=== PATIENT | female | born 1970 | race Caucasian/White ===

== ENCOUNTER 2017-09-13 10:24 | Day surgery (SDC) | payer MEDICARE, MEDICAID ==
[~2017-09-13 10:24] MED LIST: Buffered Lidocaine 0.9% SYRIN* 5 ML/SYR SYRINGE INTRADERM ONE
[2017-09-13] MEDS ORDERED: Buffered Lidocaine 0.9% SYRIN* 5 ML/SYR SYRINGE ONE (10:30)
[2017-09-13] MEDS ORDERED: Propofol* 10 MG/ML 20 ML BTL IV PUSH ONE (12:00)
[2017-09-13] MEDS ORDERED: Lidocaine 2% PF * 5 ML VIAL ONE (12:00)
[2017-09-13] MEDS ORDERED: fentaNYL* 50 MCG/ML 2 ML VIAL (100 MCG VIAL) ONE (12:00)
[2017-09-13] MEDS ORDERED: Midazolam* 1 MG/ML 2 ML VIAL (2 MG) ONE (12:00)
[2017-09-13] MEDS ORDERED: Succinylcholine* 20 MG/ML 10 ML VIAL ONE (13:10)
[2017-09-13] MEDS ORDERED: Naloxone* 0.4 MG/ML 1 ML VIAL IV PRN (13:30)
[2017-09-13 13:42] VITALS: BP 180/112
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
== END 2017-09-13 15:12 | disposition home or self-care (01) ==
LOC: OR 10:24
PROVIDERS: ATTEND Internal Medicine Gastroenterology
DX: R13.14 Dysphagia, pharyngoesophageal phase (principal); R63.4 Abnormal weight loss; R63.0 Anorexia; R10.13 Epigastric pain; K21.9 Gastro-esophageal reflux disease without esophagitis; I10 Essential (primary) hypertension; E03.9 Hypothyroidism, unspecified; G90.511 Complex regional pain syndrome I of right upper limb; F11.90 Opioid use, unspecified, uncomplicated; G40.89 Other seizures; G89.4 Chronic pain syndrome; F41.9 Anxiety disorder, unspecified; Z79.899 Other long term (current) drug therapy; Z72.0 Tobacco use
CPT/HCPCS: 81025; 87077; 88305; J0330; J2250; J2704; J3010

== ENCOUNTER 2017-12-06 08:12 | Observation (INO) | payer MEDICARE, MEDICAID ==
[~2017-12-06 08:12] MED LIST changes: +Famotidine IV* 10 MG/ML 2 ML (20 mg) IV ONE
[2017-12-06] MEDS ORDERED: ceFOXitin 2 GM IVPREMIX* 2 GM/50 ML BAG ONE (08:22)
[2017-12-06] MEDS ORDERED: Famotidine IV* 10 MG/ML 2 ML (20 mg) ONE (08:22)
[2017-12-06] MEDS ORDERED: Lidocaine 1% MPF wEPI 200,000* 30 ML SDV ONE (10:18)
[2017-12-06] MEDS ORDERED: fentaNYL* 50 MCG/ML 2 ML VIAL (100 MCG VIAL) ONE (10:21)
[2017-12-06] MEDS ORDERED: Midazolam* 1 MG/ML 5 ML VIAL (5 MG) ONE (10:26)
[2017-12-06] MEDS ORDERED: Cisatracurium* 2 MG/ML MDV 5 ML ONE (10:39)
[2017-12-06] MEDS ORDERED: Morphine VIAL* 10 MG/ML 1 ML VIAL ONE (10:50)
[2017-12-06] MEDS ORDERED: Propofol* 10 MG/ML 20 ML BTL IV PUSH ONE (10:50)
[2017-12-06] MEDS ORDERED: DiMENhydriNATE IV* 50 MG/ML VIAL ONE (10:50)
[2017-12-06] MEDS ORDERED: Succinylcholine* 20 MG/ML 10 ML VIAL ONE (10:50)
[2017-12-06] MEDS ORDERED: Dexamethasone IV* 4 MG/ML 1 ML (4 MG) ONE (10:50)
[2017-12-06] MEDS ORDERED: Ondansetron INJ* 2 MG/ML VIAL ONE (10:50)
[2017-12-06] MEDS ORDERED: Ketorolac INJ* 30 MG/ML 1 ML VIAL ONE (10:50)
[2017-12-06] MEDS ORDERED: Lidocaine 2% PF * 5 ML VIAL ONE (10:50)
[2017-12-06] MEDS ORDERED: Morphine INJ* 2 MG/ML 1 ML SYRINGE (TWO MG - NEW SYRINGE VERSION) IV PRN ×2 (11:09→20:43)
[2017-12-06] MEDS ORDERED: Naloxone* 0.4 MG/ML 1 ML VIAL IV PRN (11:09)
[2017-12-06] MEDS ORDERED: DiMENhydriNATE IV* 50 MG/ML VIAL IV PUSH PRN (11:09)
[2017-12-06] MEDS ORDERED: oxyCODONE TAB* 5 MG TAB PO PRN (11:09)
[2017-12-06] MEDS ORDERED: HYDROmorphone INJ1* 1 MG/ML SYRINGE ONE (13:27)
[2017-12-06] MEDS ORDERED: Ondansetron INJ* 2 MG/ML VIAL IV PRN (13:56)
[2017-12-06] MEDS ORDERED: Gabapentin CAP(*) 300 MG ONE (14:33)
[2017-12-06] MEDS ORDERED: ALPRAZolam TAB* 0.5 MG ONE (14:34)
[2017-12-06] MEDS ORDERED: ALPRAZolam TAB* 0.5 MG PO PRN (15:05)
[2017-12-06] MEDS ORDERED: Polyethylene Glycol 3350* 17 GM PACKET PO PRN (15:09)
[2017-12-06] MEDS ORDERED: Albuterol HFA INHALER* 8 gm MDI INH PRN (15:39)
[2017-12-06] MEDS: Morphine TAB Extended Release (*) 30 MG TAB.ER PO SCH (15:43)
[2017-12-06] MEDS ORDERED: Morphine TAB Extended Release (*) 30 MG TAB.ER PO SCH (16:00)
[2017-12-06 16:34] LABS: Hematocrit 40 % (35-47); Hemoglobin 13.6 g/dl (12.0-16.0)
[2017-12-06] MEDS: Gabapentin CAP(*) 400 MG PO SCH (16:34)
[2017-12-06] MEDS: OXYMORPHONE 5 MG PO SCH ×2 (16:58→22:13)
[2017-12-06] MEDS ORDERED: Baclofen TAB* 20 MG PO SCH (17:30)
[2017-12-06] MEDS ORDERED: Docusate CAP* 100 MG PO SCH (18:00)
[2017-12-06] MEDS ORDERED: CMC:Meloxicam(NF) 7.5 MG TAB PO SCH (18:00)
[2017-12-06] MEDS ORDERED: Lisinopril TAB* 10 MG PO SCH (18:00)
[2017-12-06] MEDS ORDERED: Cyanocobalamin TAB* 500 MCG PO SCH (18:00)
[2017-12-06] MEDS ORDERED: Baclofen TAB* 20 MG PO PRN (19:00)
[2017-12-06] MEDS: OXYCODONE 20 MG/ML PO PRN (19:24)
[2017-12-06] MEDS: cloNIDine TAB* 0.1 MG PO SCH (20:10)
[2017-12-06] MEDS ORDERED: Hydrochlorothiazide TAB* 25 MG ONE (20:59)
[2017-12-06] MEDS ORDERED: [UNRECOGNIZED DRUG - OTHER] TOPICAL SCH (21:00)
[2017-12-06] MEDS ORDERED: [UNRECOGNIZED DRUG - OTHER] TOPICAL SCH (21:00)
[2017-12-06] MEDS ORDERED: [UNRECOGNIZED DRUG - OTHER] TOPICAL SCH (21:00)
[2017-12-06] MEDS: BuPROPion XL* 150 MG TAB.XL PO SCH (21:06)
[2017-12-06] MEDS: Gabapentin CAP(*) 300 MG PO SCH ×2 (21:14→21:19)
[2017-12-07] MEDS: Morphine TAB Extended Release (*) 30 MG TAB.ER PO SCH ×2 (00:11→07:58)
[2017-12-07] MEDS: OXYMORPHONE 5 MG PO SCH ×2 (03:50→10:25)
[2017-12-07] MEDS: OXYCODONE 20 MG/ML PO PRN (03:53)
--- NOTE | 2017-12-07 05:17 | OP ---
OPERATIVE REPORT: DATE OF OPERATION: 12/06/17 DATE OF : 70 SURGEON: Carlos Frederick MD [employer] OPERATOR: Dr. Goodwin. ANESTHESIA: General endotracheal tube. PRE-OP DIAGNOSIS: Severe dysmenorrhea. POST-OP DIAGNOSIS: Severe dysmenorrhea. OPERATIVE PROCEDURE: Transvaginal hysterectomy, bilateral salpingectomy. ESTIMATED BLOOD LOSS: 100 cc. SPECIMEN: Includes uterus and fallopian tubes. FINDINGS: On exam under anesthesia, she had first degree prolapse. Both ovaries were visualized and appeared normal. Both fallopian tubes were visualized and appeared normal. Uterus was small. DESCRIPTION OF PROCEDURE: The patient identified, procedure identified as a transvaginal hysterectom y and bilateral salpingectomy. The patient was taken to the operating room, prepped and draped in th e usual fashion in the dorsal lithotomy position under general anesthesia. Two single-toothed tenacu lums were on the sides of the cervix. She was injected with the 1% lidocaine with epi at the cervico vaginal junction. This was approximately 10 cc. This was incised using the Bovie. The vaginal muco sa was dissected cephalad. The cul-de-sac was entered via sharp dissection. The uterosacral ligamen ts were clamped, cut and ligated. Good hemostasis was achieved there. The cardinal ligaments were t hen clamped, cut, and ligated using the LigaSure after the anterior vesicoperitoneal fold had been en tered. The broad ligament was incised using the LigaSure. The ovarian ligament and round ligaments were clamped, cut and ligated with 0 Polysorb simple sutures and the LigaSure. Good hemostasis was v erified in all the pedicles. The fallopian tubes were grasped with [place] Line and brought down first to the left and then the right and these were ligated using the LigaSure and excised. Good hemostasis was verified in all the pedicles once again. A modified Reynolds stitch was placed in the posterior va ginal mucosa. The vaginal cuff was then closed using 0 Polysorb in cocarc-jt-guget sutures and the M cCall stitch was tied down. Good hemostasis again verified. A Gomez was placed with clear urine. A ll sponge and instruments counts were correct and the patient returned to the recovery room in stable condition. [id number]/[facility] #: [id number]
[2017-12-07] MEDS ORDERED: Levothyroxine TAB* 50 MCG TAB PO SCH (06:00)
[2017-12-07] MEDS ORDERED: Omeprazole CAP* 20 MG PO SCH (07:30)
[2017-12-07] MEDS: Gabapentin CAP(*) 400 MG PO SCH (07:58)
[2017-12-07] MEDS: BuPROPion XL* 150 MG TAB.XL PO SCH (08:47)
[2017-12-07] MEDS: cloNIDine TAB* 0.1 MG PO SCH (08:47)
[2017-12-07] MEDS ORDERED: Metoprolol Succinate XL TAB* 50 MG PO SCH (09:00)
[2017-12-07] MEDS ORDERED: Lisinopril TAB* 10 MG PO SCH (09:00)
[2017-12-07] MEDS ORDERED: Sertraline* 50 MG TAB PO SCH (09:00)
[2017-12-07 11:40] VITALS: BP 144/86
[2017-12-07] MEDS: Gabapentin CAP(*) 300 MG PO SCH (12:57)
[2017-12-07] MEDS ORDERED: Hydrochlorothiazide TAB* 25 MG PO SCH (18:00)
--- NOTE | 2017-12-08 04:19 | DS ---
CC: Dr. Frederick; Dr. Cooney DISCHARGE SUMMARY: DATE OF ADMISSION: 12/06/17 DATE OF DISCHARGE: 12/07/17 HOSPITAL COURSE: This patient was a 47-year-old 0, who presented on the day of admission for scheduled surgery. She underwent an uncomplicated total vaginal hysterectomy and bilateral salpingectomy for severe dysmenorrhea. The patient's initial recovery was unremarkable and she was transferred to the [facility] for postoperative care. The patient's postoperative course was remarkable for intermittently severely elevated blood pressures. The patient has a history of labile hypertension which her primary provider has been controlling with multiple antihypertensives. The patient also has a history of RSD and already uses very large amounts of pain medication. On postoperative day 1, the patient was ambulating, tolerating a regular diet, voiding spontaneously, and having minimal bleeding. Her abdominal pain was also minimal. She was discharged to home in good condition on postoperative day 1. DISCHARGE PHYSICAL EXAMINATION: Vital Signs: Temperature 98.2, pulse 63, 99% on room air, blood pressure 144/ 86. General: No acute distress. Appears comfortable. Abdomen: Soft, minimal tenderness to palpation. No rebound or guarding. LABORATORY INFORMATION: Postoperative hematocrit was 40. DISCHARGE INSTRUCTIONS: The patient's instructions were provided in preprinted format and we discussed activity and restrictions at length at the bedside. The patient is to continue taking blood pressure measurements at home at least 3 times per day. She will contact us or her primary care provider if she has persistent elevation of her blood pressure, especially if they are in the 160s or higher systolic. She will continue her home medications and contact Dr. Cooney's office for followup on Saturday. DISCHARGE DIAGNOSES: Severe dysmenorrhea, status post total vaginal hysterectomy and bilateral salpingectomy. DISCHARGE MEDICATIONS: Please see the medication reconciliation in the computer. [id number]/[facility] #: [id number] [facility]ERTami
== END 2017-12-07 13:35 | disposition home or self-care (01) | DRG 742 ==
LOC: OR 08:12 → SSU 13:10 → INTOOBSV 13:10
PROVIDERS: ADMIT Obstetrics & Gynecology; ATTEND Obstetrics & Gynecology
PROC: 0UB77ZZ Excision of Bilateral Fallopian Tubes, Via Natural or Artificial Opening (ICD-10-PCS; 2017-12-06)
PROC: 0UT97ZZ Resection of Uterus, Via Natural or Artificial Opening (ICD-10-PCS; principal; 2017-12-06 09:45)
DX: N94.5 Secondary dysmenorrhea (principal); G90.50 Complex regional pain syndrome I, unspecified; I10 Essential (primary) hypertension; N81.2 Incomplete uterovaginal prolapse; G89.29 Other chronic pain; J45.909 Unspecified asthma, uncomplicated; F17.210 Nicotine dependence, cigarettes, uncomplicated; F32.9 Major depressive disorder, single episode, unspecified; F41.9 Anxiety disorder, unspecified; E03.9 Hypothyroidism, unspecified; Z90.89 Acquired absence of other organs; Z83.6 Family history of other diseases of the respiratory system; Z80.8 Family history of malignant neoplasm of other organs or systems; Z82.49 Family history of ischemic heart disease and other diseases of the circulatory system
CPT/HCPCS: 36415; 81025; 85014; 85018; 88307; A9270-GY; J0330; J0694; J1100; J1170; J1240; J1885; J2001; J2250; J2270; J2405; J2704; J3010